=== PATIENT | male | born 1985 | race Asian ===

== ENCOUNTER 2018-11-02 14:00 | Outpatient (CLI) | payer OTHER | END 2018-11-02 14:01 | disposition home or self-care (01) | LOC: SC 14:00 | PROVIDERS: ATTEND Internal Medicine Pulmonary Disease | DX: R06.83 Snoring (principal); R06.81 Apnea, not elsewhere classified; G47.8 Other sleep disorders; G47.10 Hypersomnia, unspecified; E66.9 Obesity, unspecified; Z68.33 Body mass index [BMI] 33.0-33.9, adult | CPT/HCPCS: 99203; 99212 ==

== ENCOUNTER 2018-12-20 20:25 | Outpatient (CLI) | payer OTHER | END 2018-12-20 20:26 | disposition home or self-care (01) | LOC: SC 20:25 | PROVIDERS: ATTEND Internal Medicine Pulmonary Disease | DX: R06.83 Snoring (principal) | CPT/HCPCS: 95810 ==

== ENCOUNTER 2019-01-04 14:04 | Outpatient (CLI) | payer OTHER ==
--- NOTE | 2019-01-04 14:41 | CONSULTATION NOTE ---
Information from patient questionnaire entered by Juliana Schaeffer. I have reviewed and concur with the information entered by Juliana Schaeffer. This document represents the service I personally performed and the decisions made by me, Stephanie Buchanan MD, [facility]. - History of Present Illness HPI: Mr. Martinez returned for follow up of the sleep study he had on 12/20/2018. The polysomnography showed that the patient had normal sleep efficiency. The sleep architecture was normal as well. Respiratory monitoring showed no sig nificant sleep disordered breathing (AHI = 3.2) or hypoxia ([place] oxygen saturation of 89%). The few respiratory events occurred independently of sleep stage and body position (supine AHI = 2.7; non-supine = 4.64). The patient slept adequately in supine position. Snore was loud in intensity. There was no significant periodic leg movement of sleep. Cardiac rhythm was normal sinus rhythm without significant arrhythmia. No abnormal behavior (parasomnia) observed during the night. The patient was informed of these findings. I explained to him that the sleep study was normal. PE: No significant change on the physical exam today. IMPRESSION: 1. Hypersomnia, not explained by sleep disrupting conditions or abnormal sleep architecture. Most likely it is due to insufficient sleep. According to his sleep diary, he gets about 7 hours of sleep a night during the week. He was encouraged to allow at least 8 hours for sleeping. No further evaluation is necessary as the hypersomnia is mild ([place] Sleepiness Scale score is only 7 out of 24). PLAN: 1. Allow 8 hours for sleep every night. 2. Return for follow up on as needed basis. This visit is time-based and I spent 15 minutes with the patient and more than 50% of the time was spent counseling the patient. Initial [place] Sleepiness Scale score: 7 Current [place] Sleepiness Scale score: 8 - Allergies/Medications Allergies and home medications reviewed: Yes - Review of Systems Review of systems same as previous: Yes
== END 2019-01-04 14:05 | disposition home or self-care (01) ==
LOC: SC 14:04
PROVIDERS: ATTEND Internal Medicine Pulmonary Disease
DX: R06.83 Snoring (principal); G47.10 Hypersomnia, unspecified
CPT/HCPCS: 99212; 99213